=== PATIENT | female | born 1995 | race Caucasian/White ===

== ENCOUNTER 2018-08-19 16:21 | Emergency (ER) | payer MEDICAID, OTHER ==
[~2018-08-19] VITALS: Ht 157.5 cm; Wt 124.7 kg
[2018-08-19] MEDS ORDERED: LEVOTHYROXINE 175 MCG (16:29)
--- NOTE | 2018-08-19 16:58 | ED Lower Extremity ---
General Chief Complaint: Lower Extremity Stated Complaint: L FOOT PAIN Nursing Triage Note: PT TO TRIAGE WITH COMPLAINT OF LEFT ANKLE/FT INJURY. PT STATES SHE FELL DOWN STEP. Nursing Sepsis Screen: No Definite Risk Source: patient Exam Limitations: no limitations History of Present Illness Date Seen by Provider: August 19, 2018 Time Seen by Provider: 16:34 Initial Comments 23-year-old female who presents to the emergency room with complaints of left foot pain after missing a step causing her to twist her left foot and fall to the ground. She has moderate swelling and mild ecchymosis to the left foot. She denies ankle pain or any other injuries from the fall. Denies hitting her head or neck pain. Onset: just prior to arrival Pain/Injury Location: left foot Method of Injury: fell Modifying Factors: Worse With Movement Allergies and Home Medications Allergies Coded Allergies: Penicillins (Verified Allergy, Unknown, 08/19/18) Past Lkpgyyd-Vxrmug-Lcimvr Hx Patient Social History Alcohol Use: Denies Use Recreational Drug Use: No Smoking Status: Current Someday Smoker Type Used: Cigarettes Recent Foreign Travel: No Contact w/Someone Who Travel: No Recent Infectious Disease Expo: No Recent Hopitalizations: No Immunizations Up To Date Tetanus Booster (TDap): Less than 5yrs PED Vaccines UTD: Yes Seasonal Allergies Seasonal Allergies: No Past Medical History Surgeries: No Respiratory: No Cardiac: No Neurological: No Genitourinary: No Gastrointestinal: No Musculoskeletal: No Endocrine: Yes Hypothyroidsim HEENT: No Cancer: No Psychosocial: No Integumentary: No Physical Exam Vital Signs Vital Signs - First Documented 08/19/18 16:26 Pulse 100 Resp 20 B/P (MAP) 133/95 (108) Pulse Ox 95 O2 Delivery Room Air Capillary Refill : Less Than 3 Seconds Height, Weight, BMI Height: 5'2.00" Weight: 275lbs. oz. 124.611053ul; BMI Method:Stated Progress/Results/Core Measures Results/Orders My Orders Orders - KELL PINEDA Foot, Left, 3 Views (08/19/18 16:34) Vital Signs/I&O 08/19/18 16:26 Pulse 100 Resp 20 B/P (MAP) 133/95 (108) Pulse Ox 95 O2 Delivery Room Air Blood Pressure Mean: 108 Departure Impression Primary Impression: Sprain and strain of foot Disposition: 01 HOME, SELF-CARE Condition: Stable/Unchanged Departure-Patient Inst. Decision time for Depature: 17:04 Referrals: NO,LOCAL PHYSICIAN (PCP) Primary Care Physician HUGH BERMUDEZ [employer] (Family) Primary Care Physician Patient Instructions: Sprain (DC) Add. Discharge Instructions: Ice to the sore areas at 20 minute intervals. Ibuprofen and Tylenol as needed for pain relief. Crutches as needed for comfort. Elvin bandage as needed for comfort. If no improvement within 1 week follow-up with your primary care provider for further evaluation. Return back to the emergency room for worsening symptoms or concerns as needed. All discharge instructions reviewed with patient and/or family. Voiced understanding. KELL PINEDA August 19, 2018 16:58
--- NOTE | 2018-08-19 17:00 | Diagnostic Imaging Report ---
INDICATION: Left lateral foot pain. FINDINGS: Three views of the left foot show no fracture, dislocation, or other acute abnormalities. IMPRESSION: Negative left foot. Dictated by: Dictated on workstation # [id number]
[2018-08-19 17:24] VITALS: BP 133/95
--- OUTSIDE RECORDS SUMMARY | 2018-08-19 17:29 | XMS REPORT | Continuity of Care Document ---
Author Organization Unknown Address Unknown Allergies There is no data. Medications There is no data. Problems There is no data. Procedures There is no data. Results There is no data. Encounters ACCT No. Visit Date/Time Discharge Status Pt. Type Provider Facility Loc./Unit Complaint [id number] 07/01/2018 11:36:17 07/01/2018 23:59:59 CLS Outpatient Fide Lancaster [id number] 04/09/2018 12:47:55 04/09/2018 23:59:59 CLS Outpatient Shahzad Lira [id number] 04/09/2018 12:43:10 04/09/2018 23:59:59 CLS Outpatient Suyapa Watson [id number] 04/09/2018 09:27:01 04/09/2018 23:59:59 CLS Outpatient Shahzad Lira [id number] 02/11/2018 12:04:45 02/11/2018 23:59:59 CLS Outpatient Shahzad Lira [id number] 02/14/2017 11:11:47 02/14/2017 23:59:59 CLS Outpatient Shahzad Lira [id number] 03/01/2016 10:28:42 03/01/2016 23:59:59 CLS Outpatient Shahzad Lira [id number] 06/21/2015 09:53:55 06/21/2015 23:59:59 CLS Outpatient Brady Levy [id number] 05/24/2015 16:36:14 05/24/2015 23:59:59 CLS Outpatient Brady Levy [id number] 08/01/2014 10:25:25 08/01/2014 23:59:59 CLS Outpatient Fide Lancaster [id number] 05/06/2014 10:32:18 05/06/2014 23:59:59 CLS Outpatient Fide Lancaster [id number] 12/21/2013 09:03:31 12/21/2013 23:59:59 CLS Outpatient Javier Perdomo [id number] 07/01/2013 10:13:33 07/01/2013 23:59:59 CLS Outpatient Javier Perdomo [id number] 06/21/2013 10:54:51 06/21/2013 23:59:59 CLS Outpatient Fide Lancaster [id number] 06/10/2013 14:43:48 06/10/2013 23:59:59 CLS Outpatient Javier Perdomo
== END 2018-08-19 17:24 | disposition home or self-care (01) ==
LOC: ER 16:23
DX: S93.602A Unspecified sprain of left foot, initial encounter (principal); E03.9 Hypothyroidism, unspecified; F17.210 Nicotine dependence, cigarettes, uncomplicated; Z88.0 Allergy status to penicillin; X50.1XXA Overexertion from prolonged static or awkward postures, initial encounter; W18.30XA Fall on same level, unspecified, initial encounter
CPT/HCPCS: 73630